=== PATIENT | female | born 1940 | race Caucasian/White ===

== ENCOUNTER 2021-08-20 14:35 | Emergency (ER) | payer BC, OTHER ==
[2021-08-20 14:59] VITALS: BMI 29.2
[2021-08-20] MEDS ORDERED: BEBTELOVIMAB (EUA) 175 MG/2 ML VIAL IVPUSH ONE (15:51)
[2021-08-20 18:41] VITALS: BP 141/73; PULSE 85; TEMP 101.5
== END 2021-08-20 18:20 | disposition home or self-care (01) ==
LOC: JER 14:35
DX: U07.1 COVID-19 (principal)
CPT/HCPCS: 99284-25; Q0222